=== PATIENT | female | born 1955 | race Caucasian/White ===

== ENCOUNTER 2020-11-03 06:54 | Observation (INO) ==
--- NOTE | 2020-10-20 10:54 | PAT Medication Instructions ---
Medication Instructions Date of Service October 20, 2020 Home Medications albuterol sulfate [ProAir RespiClick] 1 inh INHALATION QID PRN alprazolam [Xanax] 0.5 mg PO TID ascorbic acid (vitamin C) [Vitamin C] 500 mg PO QAM atenolol 25 mg PO QAM atorvastatin 20 mg PO QAM budesonide 0.25 mg INHALATION BID buspirone [BuSpar] 15 mg PO TID calcium carbonate-vitamin D3 [Calcium + D] 1 tab PO BID cetirizine [Zyrtec] 10 mg PO QAM citalopram 40 mg PO QAM cyanocobalamin (vitamin B-12) 1,000 mcg PO QAM famotidine [Pepcid] 20 mg PO BID fenofibrate micronized 134 mg PO QAM fluticasone propionate [Flonase] 1 spray INTRANASAL QAM mirabegron [Myrbetriq] 25 mg PO QAM montelukast [Singulair] 10 mg PO QAM multivitamin 1 tab PO QAM pantoprazole 40 mg PO BID polyethylene glycol 3350 [Miralax] 17 g PO BID tetrahydrozoline [Visine] 1 drp OPB TID STOP taking 48 hours before surgery fenofibrate micronized 134 mg PO QAM DO NOT take the morning of surgery ascorbic acid (vitamin C) [Vitamin C] 500 mg PO QAM calcium carbonate-vitamin D3 [Calcium + D] 1 tab PO BID cetirizine [Zyrtec] 10 mg PO QAM cyanocobalamin (vitamin B-12) 1,000 mcg PO QAM mirabegron [Myrbetriq] 25 mg PO QAM montelukast [Singulair] 10 mg PO QAM multivitamin 1 tab PO QAM polyethylene glycol 3350 [Miralax] 17 g PO BID Take morning of surgery With a small sip of water, OTHERWISE NOTHING TO EAT OR DRINK AFTER MIDNIGHT: albuterol sulfate [ProAir RespiClick] 1 inh INHALATION QID PRN (use if needed; please bring rescue inhaler with you to hospital day of surgery if possible) alprazolam [Xanax] 0.5 mg PO TID atenolol 25 mg PO QAM atorvastatin 20 mg PO QAM budesonide 0.25 mg INHALATION BID buspirone [BuSpar] 15 mg PO TID citalopram 40 mg PO QAM famotidine [Pepcid] 20 mg PO BID fluticasone propionate [Flonase] 1 spray INTRANASAL QAM pantoprazole 40 mg PO BID tetrahydrozoline [Visine] 1 drp OPB TID Take evening before surgery albuterol sulfate [ProAir RespiClick] 1 inh INHALATION QID PRN (if needed) alprazolam [Xanax] 0.5 mg PO TID budesonide 0.25 mg INHALATION BID buspirone [BuSpar] 15 mg PO TID calcium carbonate-vitamin D3 [Calcium + D] 1 tab PO BID famotidine [Pepcid] 20 mg PO BID pantoprazole 40 mg PO BID polyethylene glycol 3350 [Miralax] 17 g PO BID tetrahydrozoline [Visine] 1 drp OPB TID Other Notes If you have any questions please call us at [phone] or [phone] or [phone] or [phone]
--- NOTE | 2020-10-21 11:42 | Anesthesiology Consultation ---
Date of Service October 21, 2020 Assessment & Plan (1) Encounter for pre-operative examination: COVID screening: Per assessment on 10/21: Travel screen negative, no known COVID- 19 positive contacts or current COVID-19 related symptoms. Patient will receive second vaccine 10/22. Surgeon arranging preop COVID testing. Awaiting results. Chart Review Chart Review: Acceptable Risk for Surgery and Patient seen in Pre Admission Testing Teaching & Discussion Pre-Anesthesia Teaching/Discussion Notes: Instructed NPO after midnight before surgery,except medications with 15 cc of water. Medication instructions provided according to the PAT guidelines. History Surgery Operation Date: 11/03/20 11:05 Proposed Procedures p L4-L5 Decompression Fusion, Spinal Cord Monitoring - Jose Alejandro Victor, Height/Weight Height: 5 ft 2 in Weight: 79.2 kg Allergies Allergy/AdvReac Type Severity Reaction Status Date / Time topiramate Allergy Intermediate Tremors Verified 10/21/20 11:37 ampicillin Allergy Mild Hives Verified 10/21/20 11:37 Bactrim Allergy Mild RASH Verified 10/25/12 11:15 latex Allergy Mild Rash Verified 10/14/20 11:32 loratadine Allergy Mild Rash Verified 10/21/20 11:37 mirtazapine Allergy Mild Rash Verified 10/21/20 11:37 Sulfa (Sulfonamide Allergy Mild Rash Verified 10/21/20 11:37 Antibiotics) sulfamethoxazole [Bactrim] Allergy Mild Rash Verified 10/21/20 11:37 trimethoprim [Bactrim] Allergy Mild Rash Verified 10/21/20 11:37 meperidine AdvReac Intermediate Tremors Verified 10/21/20 11:37 prednisone AdvReac Intermediate Severe Verified 10/21/20 11:37 headaches fluticasone AdvReac Mild Nose bleeds Verified 10/21/20 11:37 Medications Home Medications Medication Instructions Recorded Confirmed Last Taken albuterol sulfate [ProAir 1 inh INHALATION QID PRN 10/14/20 10/14/20 Unknown RespiClick] alprazolam [Xanax] 0.5 mg PO TID 10/14/20 10/14/20 Unknown ascorbic acid (vitamin C) [Vitamin 500 mg PO QAM 10/14/20 10/14/20 Unknown C] atenolol 25 mg PO QAM 10/14/20 10/14/20 Unknown atorvastatin 20 mg PO QAM 10/14/20 10/14/20 Unknown budesonide 0.25 mg INHALATION BID 10/14/20 10/14/20 Unknown buspirone [BuSpar] 15 mg PO TID 10/14/20 10/14/20 Unknown calcium carbonate-vitamin D3 1 tab PO BID 10/14/20 10/14/20 Unknown [Calcium + D] cetirizine [Zyrtec] 10 mg PO QAM 10/14/20 10/14/20 Unknown citalopram 40 mg PO QAM 10/14/20 10/14/20 Unknown cyanocobalamin (vitamin B-12) 1,000 mcg PO QAM 10/14/20 10/14/20 Unknown famotidine [Pepcid] 20 mg PO BID 10/14/20 10/14/20 Unknown fenofibrate micronized 134 mg PO QAM 10/14/20 10/14/20 Unknown fluticasone propionate [Flonase] 1 spray INTRANASAL QAM 10/14/20 10/14/20 Unknown mirabegron [Myrbetriq] 25 mg PO QAM 10/14/20 10/14/20 Unknown montelukast [Singulair] 10 mg PO QAM 10/14/20 10/14/20 Unknown multivitamin 1 tab PO QAM 10/14/20 10/14/20 Unknown pantoprazole 40 mg PO BID 10/14/20 10/14/20 Unknown polyethylene glycol 3350 [Miralax] 17 g PO BID 10/14/20 10/14/20 Unknown tetrahydrozoline [Visine] 1 drp OPB TID 10/14/20 10/14/20 Unknown Past Medical History Medical History (Updated 10/21/20 @ 11:40 by Liseth Morocho) Anxiety and depression Asthma Stable Cataract Right eye Degenerative disc disease Dry eye syndrome Fatty liver Gastroparesis Hyperlipidemia Hypertension Spinal stenosis + LBP Stress incontinence in female Thyroid nodule Under surveillance Exercise / Class Metabolic Activity III < 4 Walking/Shop/Light housework Past Family History Family History Mother Family history of diabetes mellitus Father Family history of diabetes mellitus Daughter Family history of diabetes mellitus Son Family history of diabetes mellitus Other No family history of adverse response to anesthesia Past Surgical History Surgical History (Updated 10/21/20 @ 11:39 by Liseth Morocho) H/O shoulder surgery Right x2 History of appendectomy History of bladder surgery Bladder tack History of carpal tunnel release Right x2 History of colonoscopy History of esophagogastroduodenoscopy (EGD) History of hysterectomy [place] teeth removed Past Anesthesia History No Hx of Anesthesia Complications and No Family Hx of Anesthesia Complications History of PONV No Hx of PONV and No Hx of Motion Sickness Social History Smoking Status: Never smoker Do You Dip or Chew Tobacco: No Hx Alcohol Use: No substance use type: does not use Review of Systems No snoring. Patient denies chest pain, shortness of breath, fever, chills, cough, wheezing, palpitations. Physical Exam Vital Signs VITALS BP 115/77 P 72 TEMP 97.8 SP02 95%RA RESP 16 PHYSICAL Full neck and c-spine range of motion. Full TMJ range of motion. TMD 3 finger breaths Mallampati Score 1 Dentition: intact, + crown (side) Lungs: clear throughout to auscultation Cardiac: regular rate and rhythm, no murmurs noted Spine: normal Carotid arteries: negative bruit Extremities: no edema Testing Laboratory Results 10/21/20 11:58 10/21/20 11:58 PT 10.4 Seconds (9.0-12.0) 10/21/20 11:58 INR 1.0 (0.9-1.1) 10/21/20 11:58 APTT 22.2 Seconds (21.0-31.0) 10/21/20 11:58 Urine Color Yellow 10/21/20 11:58 Urine Appearance Clear (Clear) 10/21/20 11:58 Urine pH 5.5 (4.5-7.5) 10/21/20 11:58 Ur Specific [place] 1.025 (1.000-1.030) 10/21/20 11:58 Urine Protein Negative (Negative) 10/21/20 11:58 Urine Glucose (UA) Negative (Negative) 10/21/20 11:58 Urine Ketones Negative (Negative) 10/21/20 11:58 Urine Nitrite Negative (Negative) 10/21/20 11:58 Ur Leukocyte Esterase Negative (Negative) 10/21/20 11:58 Blood Type O Positive 10/21/20 11:58 Antibody Screen NEGATIVE 10/21/20 11:58 Electrocardiogram Date: 08/13/20 NSR at 76bpm. Possible inferior infarct. No significant change compared to 01/05/2019 per hvac maintenance technician review. Chest X-Ray Date: 10/21/20 FINDINGS: The heart is at the upper limits of normal in size. There is no failure. There is no focal pulmonary consolidation. There are no pleural effusions. There is subsegmental right middle lobe atelectasis. IMPRESSION: Subsegmental right middle lobe atelectatic change. Echocardiogram Date: 10/11/17 EF 64%. No regional wall motion abnormality. RV and PASP cannot be estimated on study. No significant valvular disease. Stress Test Date: 12/03/15 Type: DSE Dobutamine stress echo is normal without resting LV wall motion abnormalities or inducible ischemia 96% MPHR. LVEF 55 to 59%. Stress EKG response was normal. No significant arrhythmias noted.
--- NOTE | 2020-10-21 12:30 | XRay Report ---
XR chest Pre-admission PA/Lat CLINICAL HISTORY: Rapid chest COMPARISON STUDY: No previous studies for comparison. FINDINGS: The heart is at the upper limits of normal in size. There is no failure. There is no focal pulmonary consolidation. There are no pleural effusions. There is subsegmental right middle lobe atel ectasis.[ IMPRESSION: Subsegmental right middle lobe atelectatic change. ACT 112: Negative or not required by law. Electronically signed by: Kang Raymond M.D. 10/21/2020 12:29 PM
[2020-10-21 12:39] LABS: Basophils # (auto) 0.02 K/uL (0-0.2); Basophils % (auto) 0.3 %; Eosinophils # (auto) 0.26 K/uL (0-0.5); Eosinophils % (auto) 4.2 %; Hematocrit (blood only) 35.3 % (37-47); Immature Granulocytes # (auto) 0.01 K/uL (0.00-0.02); Immature Granulocytes % (auto) 0.2 %; Lymphocytes # (auto) 1.97 K/uL (1.2-3.4); Lymphocytes % (auto) 31.9 %; Mean Corpuscular Volume 91.2 fL (80-100); Mean Platelet Volume 10.6 fL (7.4-10.4); Monocytes # (auto) 0.61 K/uL (0.11-0.59); Monocytes % (auto) 9.9 %; Neutrophils # (auto) 3.31 K/uL (1.4-6.5); Neutrophils % (auto) 53.5 %; Platelet Count 201 K/uL (130-400); RDW Coefficient of Variation 14.3 % (11.5-14.5); RDW Standard Deviation 47.7 fL (36.4-46.3); Red Blood Count 3.87 M/uL (4.2-5.4); White Blood Count 6.18 K/uL (4.8-10.8)
[2020-10-21 12:51] LABS: BUN Creatinine Ratio 15.9 (10-20); Calcium 9.5 mg/dl (8.5-10.1); Creatinine Clr Calc Pharmacy 55.4 ml/min; Est GFR (African American) 70.9; Est GFR (Non-African American) 61.2; Potassium 4.1 mmol/L (3.5-5.1)
[2020-10-21 12:52] LABS: Partial Thromboplastin Ratio 0.8; Partial Thromboplastin Time 22.2 Seconds (21.0-31.0); Prothrombin Time 10.4 Seconds (9.0-12.0)
[2020-10-21 13:56] LABS: Appearance Urine Clear (Clear); Bilirubin Urine Negative (Negative); Blood Urine Negative (Negative); Color Urine Yellow; Glucose Urine UA Negative (Negative); Ketones Urine Negative (Negative); Leukocyte Esterase Urine Negative (Negative); Nitrite Urine Negative (Negative); Protein Urine Negative (Negative); Specific Gravity Urine 1.025 (1.000-1.030); Urobilinogen Urine Negative (Negative); pH Urine 5.5 (4.5-7.5)
[~2020-11-03 06:54] MED LIST: ACETAMINOPHEN 500 MG TAB PO SCH; CLINDAMYCIN 600 MG/54 ML BAG IV SCH; CeleBREX 200 MG CAP PO SCH; GABAPENTIN 300 MG CAP PO SCH; LR 15ML/HR IV SCH
[2020-11-03] MEDS ORDERED: fentaNYL citrate 100 MCG/2 ML VIAL ONE ×2 (08:39)
[2020-11-03] MEDS ORDERED: MIDAZOLAM HCL 1 MG/ML 2ML VIAL ONE (08:39)
[2020-11-03] MEDS ORDERED: ONDANSETRON INJ 2 MG/ML 2 ML VIAL ONE (08:40)
[2020-11-03] MEDS ORDERED: PROPOFOL IV EMULSION 10 MG/ML 20 ML VIAL IV ONE ×2 (08:40)
[2020-11-03] MEDS ORDERED: ROCURONIUM BROMIDE 10 MG/ML 5 ML VIAL IV ONE (08:40)
[2020-11-03] MEDS ORDERED: DEXAMETHASONE SOD INJ 4 MG/ML VIAL ONE (08:40)
[2020-11-03] MEDS ORDERED: LIDOCAINE HCL 2% 2 ML VIAL/AMP(20MG/ML) INFIL ONE ×2 (08:40)
[2020-11-03] MEDS ORDERED: METOCLOPRAMIDE HCL INJ 5 MG/ML 2 ML VIAL ONE (08:41)
[2020-11-03] MEDS ORDERED: ePHEDrine sulfate 50 MG/ML AMP IV PRN (08:42)
[2020-11-03] MEDS ORDERED: PROMETHAZINE HCL 12.5 MG in SODIUM CHLORIDE 0.9% 50 ML IV PRN ×2 (08:42→12:22)
[2020-11-03] MEDS ORDERED: LABETALOL HCL IV 5 MG/ML 20ML IV PRN (08:42)
[2020-11-03] MEDS ORDERED: ATROPINE SULFATE 0.1 MG/ML 10ML SYR IV PRN (08:42)
[2020-11-03] MEDS ORDERED: NALOXONE HCL 0.4 MG/1 ML VIAL/CARP IV PRN ×2 (08:42→12:22)
[2020-11-03] MEDS ORDERED: FLUMAZENIL 0.1 MG/1 ML 10 ML VIAL IV PRN (08:42)
[2020-11-03] MEDS ORDERED: ONDANSETRON INJ 2 MG/ML 2 ML VIAL IV PRN ×2 (08:42→12:22)
[2020-11-03] MEDS ORDERED: HYDROmorphone INJ 1 MG/ML SYRINGE IV PRN ×2 (08:42→12:22)
[2020-11-03] MEDS ORDERED: fentaNYL citrate 100 MCG/2 ML VIAL IV PRN (08:42)
--- NOTE | 2020-11-03 09:00 | History & Physical Bridge Note ---
Date of Service November 03, 2020 History & Physical Bridge Note I have examined the patient, reviewed the History & Physical and in the interval since the performance of the History & Physical I have noted the following changes of clinical significance: no changes noted
--- NOTE | 2020-11-03 09:01 | History & Physical Report ---
Date of Service November 03, 2020 Assessment & Plan (1) Neurogenic claudication due to lumbar spinal stenosis: Admission and Anticipated Discharge Date Admission Date: L4-L5 decompression fusion History of Present Illness Chief Complaint: Back and bilateral leg pain Primary Care Provider: Roman Jernigan MD This is a 65-year-old female presents with chronic persistent back and bilateral leg pain. After failing course of nonoperative care she is here for surgical invention. Allergies Allergy/AdvReac Type Severity Reaction Status Date / Time topiramate Allergy Intermediate Tremors Verified 11/03/20 07:46 ampicillin Allergy Mild Hives Verified 11/03/20 07:46 Bactrim Allergy Mild RASH Verified 10/25/12 11:15 latex Allergy Mild Rash Verified 11/03/20 07:46 loratadine Allergy Mild Rash Verified 11/03/20 07:46 mirtazapine Allergy Mild Rash Verified 11/03/20 07:46 Sulfa (Sulfonamide Allergy Mild Rash Verified 11/03/20 07:46 Antibiotics) sulfamethoxazole [Bactrim] Allergy Mild Rash Verified 11/03/20 07:46 trimethoprim [Bactrim] Allergy Mild Rash Verified 11/03/20 07:46 meperidine AdvReac Intermediate Tremors Verified 11/03/20 07:46 prednisone AdvReac Intermediate Severe Verified 11/03/20 07:46 headaches fluticasone AdvReac Mild Nose bleeds Verified 11/03/20 07:46 Home Medications Medication Instructions Recorded Confirmed Type albuterol sulfate [ProAir 1 inh INHALATION QID PRN 10/14/20 11/03/20 History RespiClick] alprazolam [Xanax] 0.5 mg PO TID 10/14/20 11/03/20 History ascorbic acid (vitamin C) [Vitamin 500 mg PO QAM 10/14/20 11/03/20 History C] atenolol 25 mg PO QAM 10/14/20 11/03/20 History atorvastatin 20 mg PO QAM 10/14/20 11/03/20 History budesonide 0.25 mg INHALATION BID 10/14/20 11/03/20 History buspirone [BuSpar] 15 mg PO TID 10/14/20 11/03/20 History calcium carbonate-vitamin D3 1 tab PO BID 10/14/20 11/03/20 History [Calcium + D] cetirizine [Zyrtec] 10 mg PO QAM 10/14/20 11/03/20 History citalopram 40 mg PO QAM 10/14/20 11/03/20 History cyanocobalamin (vitamin B-12) 1,000 mcg PO QAM 10/14/20 11/03/20 History famotidine [Pepcid] 20 mg PO BID 10/14/20 11/03/20 History fenofibrate micronized 134 mg PO QAM 10/14/20 11/03/20 History fluticasone propionate [Flonase] 1 spray INTRANASAL QAM 10/14/20 11/03/20 History mirabegron [Myrbetriq] 25 mg PO QAM 10/14/20 11/03/20 History montelukast [Singulair] 10 mg PO QAM 10/14/20 11/03/20 History multivitamin 1 tab PO QAM 10/14/20 11/03/20 History pantoprazole 40 mg PO BID 10/14/20 11/03/20 History polyethylene glycol 3350 [Miralax] 17 g PO BID 10/14/20 11/03/20 History tetrahydrozoline [Visine] 1 drp OPB TID 10/14/20 11/03/20 History Past Med/Surg History Medical History (Updated 11/03/20 @ 09:01 by Jose Alejandro Victor DO) Anxiety and depression Asthma Stable Cataract Right eye Degenerative disc disease Dry eye syndrome Fatty liver Gastroparesis Hyperlipidemia Hypertension Spinal stenosis + LBP Stress incontinence in female Thyroid nodule Under surveillance Surgical History H/O shoulder surgery Right x2 History of appendectomy History of bladder surgery Bladder tack History of carpal tunnel release Right x2 History of colonoscopy History of esophagogastroduodenoscopy (EGD) History of hysterectomy [place] teeth removed Family History Mother Family history of diabetes mellitus Father Family history of diabetes mellitus Daughter Family history of diabetes mellitus Son Family history of diabetes mellitus Other No family history of adverse response to anesthesia Social History Smoking Status: Never smoker Second Hand Exposure: Yes (IN THE PAST); Do You Dip or Chew Tobacco: No; Hx Alcohol Use: No Preferred Language: Greenlandic Facilities Mechanical Design Engineer Required: No Beliefs That Will Affect Care: None Current Living Situation: Spouse Feels Safe at Home: Yes Safety Concerns: Feels Safe At This Time Assistive Devices: Glasses and Nebulizer Physical Exam Physical Exam: Patient is alert and oriented Heart regular in rhythm Lungs clear to auscultation Results & Data ([facility]) Vital Signs (Past 12 Hours) Vital Signs Temp Pulse Resp BP Pulse Ox 11/03/20 07:57 36.8 C 87 20 132/80 92
[2020-11-03] MEDS ORDERED: BACITRACIN INJ 50,000 UNIT VIAL ONE (09:15)
[2020-11-03] MEDS ORDERED: BUPIVACAINE/EPINEPHRINE 0.5% MPF 1:200,000 30 ML VIAL ONE (09:15)
[2020-11-03] MEDS ORDERED: HYDROmorphone INJ 2 MG/ML SYR/VIAL ONE (09:59)
[2020-11-03] MEDS ORDERED: ePHEDrine sulfate 50 MG/ML SYR ONE (10:07)
[2020-11-03] MEDS ORDERED: GLYCOPYRROLATE 0.2 MG/ML VIAL ONE (10:55)
[2020-11-03] MEDS ORDERED: NEOSTIGMINE METHYLSULFATE 1 MG/ML 10ML VIAL ONE (10:55)
[2020-11-03] MEDS ORDERED: FLOSEAL HEMOSTATIC MATRIX 10ML TOP ONE (10:58)
--- NOTE | 2020-11-03 11:00 | Operative Report ---
Post Operative Report Pre & Post Diagnosis Operation Date: 11/03/20 09:05 Pre-Op Diagnosis: Lumbar spinal stenosis with spondylolisthesis L4-L5 Post-Op Diagnosis: Same I identified the patient and participated in the time-out.: Yes Procedure Operation Date: 11/03/20 09:05 Actual Procedures #1 lumbar decompression with bilateral medial facetectomies and foraminotomies L3-4 and L4-5. #2 posterior spinal fusion L4-5. #3 placement posterior instrumentation L4-5. #4 interbody fusion L4-L5. #5 placement of peek cage 13 x 22 mm at L4-5 per #6 placement locally harvested morselized autograft in the posterior lateral gutters. #7 placement of I factor in the interbody space and posterior lateral gutters. Surgeon Jose Alejandro Victor, DO [employer] Supervisor Vandana Olson Estimated Blood Loss 100 Findings See Below The patient is 5 foot 2 inches tall weighing over 78 kg with a BMI in excess of 31. The patient's body habitus did contribute to significant technical difficulty requiring deeper retractors longus instruments in order to perform her procedure. This had at least 25% increase to the operative time. Specimens None Indications This is a 65-year-old female presents above-mentioned diagnosis with recent course of nonoperative care she is here for the above-mentioned procedure. Description of Procedure Patient was met with identified informed consent obtained. Patient was then taken to the operative suite underwent a patient placed in prone position i njectable top less than frame. All bony prominences well-padded eyes inspected to ensure no external pressure placed upon the. This point the lumbar spine was prepped and draped in a sterile fashion. Sharp dissection with the assistance of Bovie cautery was performed down to and exposing the lamina and transverse processes of L4 and L5. From caudal to cephalad fashion complete laminectomy of L4 partial laminectomy of L3 was performed including bilateral medial facetectomies and foraminotomies addressing severe spinal stenosis. Pedicle screws were then placed in L4 and L5 bilaterally with assistance of fluoroscopy and the process lynda placed. By way the transforaminal approach on the right complete discectomy was performed endplates curetted to subcortical bleeding bone and a 13 x 22 mm peek cage filled with I factor tapped in position. The rods were then locked in final position bilaterally. The transverse processes of L4 and L5 burred to subcortical bleeding bone. Infuse collagen sponge mass graft local autograft was then placed in the posterior gutters. 15 round ERICH drain inserted. The incision was then closed with 1 Vicryl to fascia 2-0 Vicryl subcutaneously and 4 Monocryl for final skin closure. Steri-Strip sterile dressings placed. Patient will continue to PACU stable condition. Please note spinal cord monitoring was utilized at the procedure no changes noted. Lastly Vandana Olson was present at the entire surgery involved the patient positioning complex portions of the surgery and final skin closure. I attest to the content of the Intraoperative Record and any orders documented therein. Any exceptions are noted below.
[2020-11-03] MEDS ORDERED: KETOROLAC 30 MG/ML VIAL ONE (11:01)
--- NOTE | 2020-11-03 11:29 | Fluoroscopy Report ---
FL lumbar spine 2-3V CLINICAL HISTORY: L4-L5 DECOMPRESSION AND FUSION COMPARISON STUDY: None FLUOROSCOPY TIME: 17 seconds. NUMBER OF FLUOROSCOPIC IMAGES: 2 FINDINGS: 2 intraoperative fluoroscopic spot images demonstrate postsurgical changes of an L4-5 disce ctomy and interbody fusion. Postlaminectomy changes are evident. There is posterior pedicle screw fix ation. IMPRESSION: Postsurgical changes of an L4-5 spinal decompression, interbody fusion, and posterior pe dicle screw fixation ACT 112: Negative or not required by law. Electronically signed by: Kang Raymond M.D. 11/03/2020 11:28 AM
--- NOTE | 2020-11-03 11:56 | Anesthesiology Progress Note ---
Date of Service November 03, 2020 Anesthesia Post Procedure Vital Signs Vital Signs: Temp Pulse Pulse Resp BP BP Pulse Ox 11/03/20 11:50 36.5 C 81 16 109/82 94 11/03/20 11:40 82 14 140/82 94 11/03/20 11:30 84 14 123/85 93 11/03/20 11:20 83 14 113/79 95 11/03/20 11:13 36.4 C L 81 14 115/74 93 11/03/20 07:57 36.8 C 87 20 132/80 92 Pain Intensity Lower Back: Pain Intensity: 4 Transfer of Care Handoff Completed per policy Notes Mental Status: alert / awake / arousable Patient Amnestic to Procedure: Yes Nausea / Vomiting: adequately controlled Pain: adequately controlled Airway Patency, RR, SpO2: stable & adequate BP & HR: stable & adequate Hydration State: stable & adequate Anesthetic Complications: no major complications apparent
[2020-11-03] MEDS ORDERED: MAGNESIUM HYDROXIDE SUSP 30 ML UDC PO PRN (12:22)
[2020-11-03] MEDS ORDERED: METOCLOPRAMIDE HCL INJ 5 MG/ML 2 ML VIAL IV PRN (12:22)
[2020-11-03] MEDS ORDERED: DO NOT ADMINISTER FLU VACCINE PRN (12:22)
[2020-11-03] MEDS ORDERED: LORazepam 0.5 MG TAB PO PRN (12:22)
[2020-11-03] MEDS ORDERED: ALUMINUM/MAGNESIUM SUSP 30 ML UDC PO PRN (12:22)
[2020-11-03] MEDS ORDERED: ACETAMINOPHEN 500 MG TAB PO PRN (12:22)
[2020-11-03] MEDS ORDERED: ACETAMINOPHEN 1,000 MG/100 ML VIAL IV PRN (12:22)
[2020-11-03] MEDS ORDERED: diphenhydrAMINE Capsule 25 MG CAP PO PRN (12:22)
[2020-11-03] MEDS ORDERED: LORazepam 0.5 MG/1 ML VIAL IV PRN (12:22)
[2020-11-03] MEDS ORDERED: HYDROmorphone INJ 0.5 MG/0.5 ML SYR IV PRN (12:22)
[2020-11-03] MEDS ORDERED: bisacodyL 10 MG SUPP PR PRN (12:22)
[2020-11-03] MEDS ORDERED: ONDANSETRON 4 MG OD TAB PO PRN (12:22)
[2020-11-03] MEDS ORDERED: SOD PHOSPHATE/SOD BIPHOSPHATE ENEMA 132 ML BTL PR PRN (12:22)
[2020-11-03] MEDS ORDERED: DO NOT ADMINISTER PNEUMOCOCCAL VACCINE PRN (12:22)
[2020-11-03] MEDS ORDERED: hydrOXYzine HCl 25 MG TAB PO PRN (12:22)
[2020-11-03] MEDS ORDERED: traMADol HCL 50 MG TABLET PO PRN (12:22)
[2020-11-03] MEDS ORDERED: FAMOTIDINE 20 MG TAB PO PRN (12:22)
[2020-11-03] MEDS ORDERED: ALBUTEROL HFA 8 GM INHALER INH PRN (13:08)
[2020-11-03] MEDS: busPIRone 15 MG TAB PO SCH ×2 (13:55→20:26)
[2020-11-03] MEDS: SODIUM CHLORIDE 0.9% 1000ML 1,000 ML IV SCH ×2 (13:55→23:02)
[2020-11-03] MEDS: ALPRAZolam 0.5 MG TABLET PO SCH ×2 (13:56→20:26)
[2020-11-03] MEDS: ARTIFICIAL TEARS OP SCH ×2 (14:00→20:27)
--- NOTE | 2020-11-03 14:18 | Consultation ---
Date of Consultation November 03, 2020 Assessment & Plan (1) Neurogenic claudication due to lumbar spinal stenosis: S/P L4-L5 lumbar decompression fusion by Dr. Victor, POD #0 Tolerated procedure well EBL 100 mL; ERICH drain 30 mL Pain/wound management per orthopedic Activity, therapy and diet as directed by Ortho Encourage incentive spirometry and wean oxygen as able Monitor hemoglobin, preop 12.0 (2) Asthma: No acute exacerbation, lungs clear Continue budesonide, as needed albuterol, Singulair and cetirizine Encourage incentive spirometry (3) Hypertension: Blood pressure stable Continue atenolol (4) Hyperlipidemia: Continue statin (5) Anxiety and depression: mood stable Continue BuSpar, citalopram, as needed alprazolam Dispo: per primary FULL CODE PCP: Rere Monroy was seen and examined in collaboration with Dr. Sweet, please see addendum Thank you for this consultation. We will follow the patient with you during their hospital stay. [facility] via tiger text role. Supervising Physician Co-Signing Physician Notes I saw this patient with the physician assistant teacher, I participated in the history, physical, review of systems, and physical exam. I reviewed the medications with the patient and the physician assistant teacher and helped reconcile the medications. I helped take a detailed family and social history as well. I formulated the assessment and plan personally with the physician assistant teacher and went over it with the patient. Physical Exam Gen-AAO x 3, NAD, Afebrile, Drain in Place Head-NCAT, EOMI, PERRLA, Anicteric Sclera, No Posterior Pharyngeal Erythema Neck-Supple, No JVD, No Thyromegaly, No Masses, No LAD, No Bruits Lungs-Clear to Auscultation Bilaterally, No Rales, No Rhonchi, No Wheezing, No Crepitus Chest-No S4, +S1, +S2, No S3, No Murmurs, No Rubs, No Gallops, No Ectopy Abdomen-Soft, Bowel Sounds Present, Non Tender, Non Distended, No Hepatomegaly, No Splenomegaly, No Palpable Masses, No Rebound, No Rigidity, No Guarding Musculoskeletal-Full Range of Motion Bilaterally, No CVAT, +Drain, Sore Extremities-No Cyanosis, No Clubbing, No Edema Nuero-Cranial Nerves II-XII grossly intact, Motor WNL, DTRs WNL, Strength WNL, Non Focal Psych-Normal Mood History of Present Illness Requesting Physician: Dr. Victor Reason for Consultation: Postop medical management Attending Physician: Jose Alejandro Victor DO History of Present Illness This is a 65-year-old female who has significant past medical history of HTN, HLD, diastolic dysfunction, asthma, depression with anxiety, gastroparesis, fatty liver who presents for elective lumbar procedure by Dr. Victor. She underwent L4-L5 lumbar decompression fusion and tolerated procedure well. She has no postoperative concerns or complaints. She tolerated clear liquid diet for lunch. She denies fever, chills, sweats, lightheadedness, dizziness, chest pain, shortness breath, cough, palpitations, nausea, vomiting, abdominal pain. She did not have a urinary catheter placed postoperatively. Patient does have past medical history of asthma. She is on budesonide twice daily. She denies need of rescue inhaler at home. She is also on Singulair and antihistamine. She also has history of hypertension controlled with atenolol. Her last dose was this morning. Nurse at bedside offers no concerns. Allergies Allergy/AdvReac Type Severity Reaction Status Date / Time topiramate Allergy Intermediate Tremors Verified 11/03/20 07:46 ampicillin Allergy Mild Hives Verified 11/03/20 07:46 Bactrim Allergy Mild RASH Verified 10/25/12 11:15 latex Allergy Mild Rash Verified 11/03/20 07:46 loratadine Allergy Mild Rash Verified 11/03/20 07:46 mirtazapine Allergy Mild Rash Verified 11/03/20 07:46 Sulfa (Sulfonamide Allergy Mild Rash Verified 11/03/20 07:46 Antibiotics) sulfamethoxazole [Bactrim] Allergy Mild Rash Verified 11/03/20 07:46 trimethoprim [Bactrim] Allergy Mild Rash Verified 11/03/20 07:46 meperidine AdvReac Intermediate Tremors Verified 11/03/20 07:46 prednisone AdvReac Intermediate Severe Verified 11/03/20 07:46 headaches fluticasone AdvReac Mild Nose bleeds Verified 11/03/20 07:46 Home Medications Medication Instructions Recorded Confirmed Type albuterol sulfate [ProAir 1 inh INHALATION QID PRN 10/14/20 11/03/20 History RespiClick] alprazolam [Xanax] 0.5 mg PO TID 10/14/20 11/03/20 History ascorbic acid (vitamin C) [Vitamin 500 mg PO QAM 10/14/20 11/03/20 History C] atenolol 25 mg PO QAM 10/14/20 11/03/20 History atorvastatin 20 mg PO QAM 10/14/20 11/03/20 History budesonide 0.25 mg INHALATION BID 10/14/20 11/03/20 History buspirone [BuSpar] 15 mg PO TID 10/14/20 11/03/20 History calcium carbonate-vitamin D3 1 tab PO BID 10/14/20 11/03/20 History [Calcium + D] cetirizine [Zyrtec] 10 mg PO QAM 10/14/20 11/03/20 History citalopram 40 mg PO QAM 10/14/20 11/03/20 History cyanocobalamin (vitamin B-12) 1,000 mcg PO QAM 10/14/20 11/03/20 History famotidine [Pepcid] 20 mg PO BID 10/14/20 11/03/20 History fenofibrate micronized 134 mg PO QAM 10/14/20 11/03/20 History fluticasone propionate [Flonase] 1 spray INTRANASAL QAM 10/14/20 11/03/20 History mirabegron [Myrbetriq] 25 mg PO QAM 10/14/20 11/03/20 History montelukast [Singulair] 10 mg PO QAM 10/14/20 11/03/20 History multivitamin 1 tab PO QAM 10/14/20 11/03/20 History pantoprazole 40 mg PO BID 10/14/20 11/03/20 History polyethylene glycol 3350 [Miralax] 17 g PO BID 10/14/20 11/03/20 History tetrahydrozoline [Visine] 1 drp OPB TID 10/14/20 11/03/20 History Patient History Medical History (Updated 11/03/20 @ 14:13 by Meri Chance PA-C) Anxiety and depression Asthma Stable Cataract Right eye Degenerative disc disease Dry eye syndrome Fatty liver Gastroparesis Hyperlipidemia Hypertension Spinal stenosis + LBP Stress incontinence in female Thyroid nodule Under surveillance Surgical History H/O shoulder surgery Right x2 History of appendectomy History of bladder surgery Bladder tack History of carpal tunnel release Right x2 History of colonoscopy History of esophagogastroduodenoscopy (EGD) History of hysterectomy [place] teeth removed Family History (Updated 11/03/20 @ 14:11 by Meri Chance PA-C) Mother Family history of diabetes mellitus Cancer Father Family history of diabetes mellitus Cancer Daughter Family history of diabetes mellitus Son Family history of diabetes mellitus Other No family history of adverse response to anesthesia Social History (Updated 11/03/20 @ 14:11 by Meri Chance PA-C) Smoking Status: Never smoker Second Hand Exposure: Yes (IN THE PAST); Do You Dip or Chew Tobacco: No; Hx Alcohol Use: No Hx Substance Use: No Preferred Language: Occitan Senior It Auditor Required: No Beliefs That Will Affect Care: None marital status: Current Living Situation: Spouse current occupational status: retired and disabled Feels Safe at Home: Yes Safety Concerns: Feels Safe At This Time Assistive Devices: Glasses and Nebulizer Review of Systems Review of Systems: All systems reviewed & are unremarkable except as noted in HPI & below Physical Exam Physical Exam: Constitutional: WD/WN, female, drowsy, vitals as above, NAD, sitting up in bed, pleasant, conversing easily Head: Normocephalic, Atraumatic Eyes: PERRL, conjunctivae normal, anicteric sclerae ENMT: external ear and nose normal, oropharynx normal Neck: trachea midline, no thyromegaly normal visual inspection Respiratory: normal respiratory effort, lungs clear to auscultation, no wheeze, rales, rhonchi. Normal insp/exp effort, no accessory muscle use Cardiovascular: RRR, no murmur, no edema Vessels: no JVD or carotid bruit Chest: normal inspection of chest Abdomen: normal bowel sounds, soft, nontender, no hepatosplenomegaly Musculoskeletal: no cyanosis or clubbing, extremities motor strength 5/5, lumbar dressing CDI, ERICH drain with serosanguineous drainage Skin: no rashes, warm and dry normal turgor Neurologic: PERRL, EOMI, accommodation nl, no face palsy, no dysarthria CN's II-XI intact bilaterally and moves all extremities Psychiatric: A+Ox3, euthymic affect Lymphatic: no cervical or axillary lymphadenopathy : deferred Results & Data ([facility]) Vital Signs (Past 12 Hours) Vital Signs Temp Pulse Pulse Pulse Resp BP BP 11/03/20 13:35 37.3 C 91 H 18 120/77 11/03/20 12:35 36.5 C 86 18 120/70 11/03/20 12:05 36.8 C 88 16 133/84 11/03/20 11:50 36.5 C 81 16 109/82 11/03/20 11:40 82 14 140/82 11/03/20 11:30 84 14 123/85 11/03/20 11:20 83 14 113/79 11/03/20 11:13 36.4 C L 81 14 115/74 11/03/20 07:57 36.8 C 87 20 132/80 Pulse Ox 11/03/20 13:35 92 11/03/20 12:35 93 11/03/20 12:05 93 11/03/20 11:50 94 11/03/20 11:40 94 11/03/20 11:30 93 11/03/20 11:20 95 11/03/20 11:13 93 11/03/20 07:57 92 Diagnostic Findings Lumbar Spine X-Ray 11/03/20 07:00 FL lumbar spine 2-3V CLINICAL HISTORY: L4-L5 DECOMPRESSION AND FUSION COMPARISON STUDY: None FLUOROSCOPY TIME: 17 seconds. NUMBER OF FLUOROSCOPIC IMAGES: 2 FINDINGS: 2 intraoperative fluoroscopic spot images demonstrate postsurgical changes of an L4-5 discectomy and interbody fusion. Postlaminectomy changes are evident. There is posterior pedicle screw fixation. IMPRESSION: Postsurgical changes of an L4-5 spinal decompression, interbody fusion, and posterior pedicle screw fixation ACT 112: Negative or not required by law. Electronically signed by: Kang Raymond M.D. 11/03/2020 11:28 AM CXR: IMPRESSION: Subsegmental right middle lobe atelectatic change. Medications Administered Acetaminophen (Acetaminophen 500 Mg Tab) 1,000 mg PO PREOP RASHI Stop: 11/03/20 18:00 Last Admin: 11/03/20 08:26 Dose: 1,000 mg Documented by: [id number] Alprazolam (Alprazolam 0.5 Mg Tablet) 0.5 mg PO TID RASHI Stop: 12/03/20 13:59 Last Admin: 11/03/20 13:56 Dose: 0.5 mg Documented by: [id number] Artificial Tears (Artificial Tears) 1 drops OP TID RASHI Stop: 12/03/20 13:59 Last Admin: 11/03/20 14:00 Dose: 1 drops Documented by: [id number] Buspirone HCl (Buspirone 15 Mg Tab) 15 mg PO TID RASHI Stop: 12/03/20 13:59 Last Admin: 11/03/20 13:55 Dose: 15 mg Documented by: [id number] Celecoxib (Celebrex 200 Mg Cap) 200 mg PO PREOP RASHI Stop: 11/03/20 18:00 Last Admin: 11/03/20 08:27 Dose: Not Given Documented by: [id number] Gabapentin (Gabapentin 300 Mg Cap) 300 mg PO PREOP RASHI Stop: 11/03/20 18:00 Last Admin: 11/03/20 08:27 Dose: 300 mg Documented by: [id number] Lactated Ringer's (Lr) 1,000 mls @ 15 mls/hr IV .Q24H RASHI Stop: 11/04/20 05:59 Last Infusion: 11/03/20 09:32 Dose: 0 mls/hr Documented by: [id number] Admin: 11/03/20 08:25 Dose: 15 mls/hr Documented by: [id number] Clindamycin Phosphate (Cleocin) 600 mg in 54 mls @ 100 mls/hr IV PREOP RASHI Stop: 11/04/20 05:59 Last Admin: 11/03/20 09:32 Dose: 100 mls/hr Documented by: [id number] Sodium Chloride (Nss 1000ml) 1,000 mls @ 100 mls/hr IV .Q10H RASHI Stop: 12/03/20 12:21 Last Admin: 11/03/20 13:55 Dose: 100 mls/hr Documented by: [id number] Discontinued Medications Bacitracin (Bacitracin Inj 50,000 Unit Vial) Confirm Administered Dose 50,000 units .ROUTE .STK-MED ONE Stop: 11/03/20 09:16 Last Admin: 11/03/20 10:56 Dose: 50,000 units Documented by: [id number] Bupivacaine HCl/Epinephrine Bitart (Bupivacaine/Epinephrine 0.5% Mpf 1:200,000 30 Ml Vial) Confirm Administered Dose 30 ml .ROUTE .STK-MED ONE Stop: 11/03/20 09:16 Last Admin: 11/03/20 10:58 Dose: 20 ml Documented by: [id number] Miscellaneous ( Floseal Hemostatic Matrix 10ml) 10 ml TOP ONCE ONE Stop: 11/03/20 10:59 Last Admin: 11/03/20 11:00 Dose: 8 ml Documented by: [id number] ECG Rate (beats per minute): 76 Rhythm: normal sinus
[2020-11-03] MEDS: oxyCODONE HCL IR 5 MG TAB (IMMEDIATE RELEASE) PO PRN (16:29)
[2020-11-03] MEDS: CLINDAMYCIN 600 MG in DEXTROSE 5% 50 ML IV SCH (17:27)
[2020-11-03] MEDS: BUDESONIDE 0.25 MG/2 ML VIAL (PULMICORT) INH SCH (19:27)
[2020-11-03] MEDS: PANTOprazole 40 MG TAB PO SCH (20:26)
[2020-11-03] MEDS: FAMOTIDINE 20 MG TAB PO SCH (20:26)
[2020-11-03] MEDS: CALCIUM 600MG + VIT D 400 IU TAB PO SCH (20:26)
[2020-11-03] MEDS: DOCUSATE SODIUM/SENNA 50/8.6MG TAB PO SCH (20:26)
[2020-11-03] MEDS ORDERED: POLYETHYLENE (MIRALAX) 17 GM PACK PO SCH (21:00)
[2020-11-04] MEDS: CLINDAMYCIN 600 MG in DEXTROSE 5% 50 ML IV SCH (02:49)
[2020-11-04] MEDS: oxyCODONE HCL IR 5 MG TAB (IMMEDIATE RELEASE) PO PRN ×3 (03:59→14:45)
[2020-11-04] MEDS: POLYETHYLENE (MIRALAX) 17 GM PACK PO SCH ×3 (05:59→18:04)
[2020-11-04 06:01] LABS: Basophils # (auto) 0.01 K/uL (0-0.2); Basophils % (auto) 0.1 %; Eosinophils # (auto) 0.01 K/uL (0-0.5); Eosinophils % (auto) 0.1 %; Hematocrit (blood only) 32.3 % (37-47); Hemoglobin 10.7 g/dL (12.0-16.0); Immature Granulocytes # (auto) 0.02 K/uL (0.00-0.02); Immature Granulocytes % (auto) 0.2 %; Lymphocytes # (auto) 1.18 K/uL (1.2-3.4); Lymphocytes % (auto) 9.5 %; Mean Corpuscular Hemoglobin 30.7 pg (25-34); Mean Corpuscular Hgb Conc 33.1 g/dL (32-36); Mean Corpuscular Volume 92.6 fL (80-100); Mean Platelet Volume 10.1 fL (7.4-10.4); Monocytes # (auto) 1.05 K/uL (0.11-0.59); Monocytes % (auto) 8.5 %; Neutrophils # (auto) 10.09 K/uL (1.4-6.5); Neutrophils % (auto) 81.6 %; Platelet Count 221 K/uL (130-400); RDW Coefficient of Variation 14.2 % (11.5-14.5); RDW Standard Deviation 47.6 fL (36.4-46.3); Red Blood Count 3.49 M/uL (4.2-5.4); White Blood Count 12.36 K/uL (4.8-10.8)
[2020-11-04 06:35] LABS: BUN Creatinine Ratio 17.2 (10-20); Calcium 8.1 mg/dl (8.5-10.1); Creatinine Clr Calc Pharmacy 53.4 ml/min; Est GFR (African American) 68.3; Potassium 4.1 mmol/L (3.5-5.1)
[2020-11-04] MEDS: BUDESONIDE 0.25 MG/2 ML VIAL (PULMICORT) INH SCH ×2 (07:30→19:55)
[2020-11-04] MEDS: MULTIVITAMIN TAB PO SCH (08:36)
[2020-11-04] MEDS: ATENOLOL 25 MG TABLET PO SCH (08:36)
[2020-11-04] MEDS: ATORVASTATIN 20 MG TAB PO SCH (08:36)
[2020-11-04] MEDS: FLUTICASONE PROPIONATE NA SPR 16 GM BTL SCH (08:36)
[2020-11-04] MEDS: CETIRIZINE HCL 10 MG TABLET PO SCH (08:36)
[2020-11-04] MEDS: CYANOCOBALAMIN 500 MCG TABLET (VITAMIN B-12) PO SCH (08:36)
[2020-11-04] MEDS: ASCORBIC ACID 500 MG TAB PO SCH (08:36)
[2020-11-04] MEDS: ARTIFICIAL TEARS OP SCH ×3 (08:36→20:24)
[2020-11-04] MEDS: MONTELUKAST SODIUM 10 MG TABLET PO SCH (08:36)
[2020-11-04] MEDS: CALCIUM 600MG + VIT D 400 IU TAB PO SCH ×2 (08:36→20:25)
[2020-11-04] MEDS: FAMOTIDINE 20 MG TAB PO SCH ×2 (08:36→20:25)
[2020-11-04] MEDS: ALPRAZolam 0.5 MG TABLET PO SCH ×3 (08:37→20:24)
[2020-11-04] MEDS: PANTOprazole 40 MG TAB PO SCH ×2 (08:37→20:25)
[2020-11-04] MEDS: CITALOPRAM 40 MG TAB PO SCH (08:37)
[2020-11-04] MEDS: MIRABEGRON ER 25 MG TAB PO SCH (08:37)
[2020-11-04] MEDS: busPIRone 15 MG TAB PO SCH ×3 (08:37→20:25)
--- NOTE | 2020-11-04 08:53 | Hospitalist Progress Note ---
Date of Service November 04, 2020 Assessment & Plan (1) Neurogenic claudication due to lumbar spinal stenosis: S/P L4-L5 lumbar decompression fusion by Dr. Victor, POD #1 Tolerated procedure well EBL 100 mL; ERICH drain 145 mL Pain/wound management per orthopedic Activity, therapy and diet as directed by Ortho Encourage incentive spirometry, weaned off oxygen this a.m. Monitor hemoglobin, preop 12.0 Anemia post op hgb 10.7, pre op 12.0 likely dilutional at this point, minimal blood loss 100 EBL intra op and 145ml via ERICH drain monitor hgb Leukocytosis wbc 12.36k, likely reactive no s/sx of infection monitor (2) Asthma: No acute exacerbation, lungs clear Continue budesonide, as needed albuterol, Singulair and cetirizine Encourage incentive spirometry (3) Hypertension: Blood pressure stable Continue atenolol (4) Hyperlipidemia: Continue statin (5) Anxiety and depression: mood stable Continue BuSpar, citalopram, as needed alprazolam pt does have RUE tremor, she states this is chronic and feels likely 2/2 to her anti depression/anxiety meds Dispo: per primary FULL CODE PCP: Rere Pt was seen and examined in collaboration with Dr. Sweet, please see addendum Thank you for this consultation. We will follow the patient with you during their hospital stay. You can reach a member of the [facility] Hospitalist Team 21/02 via tiger text role. Admission and Anticipated Discharge Date Admission Date: November 03, 2020 Supervising Physician Co-Signing Physician Notes Physical Exam Gen-AAO x 3, NAD, Afebrile, Drain in Place Head-NCAT, EOMI, PERRLA, Anicteric Sclera, No Posterior Pharyngeal Erythema Neck-Supple, No JVD, No Thyromegaly, No Masses, No LAD, No Bruits Lungs-Clear to Auscultation Bilaterally, No Rales, No Rhonchi, No Wheezing, No Crepitus Chest-No S4, +S1, +S2, No S3, No Murmurs, No Rubs, No Gallops, No Ectopy Abdomen-Soft, Bowel Sounds Present, Non Tender, Non Distended, No Hepatomegaly, No Splenomegaly, No Palpable Masses, No Rebound, No Rigidity, No Guarding Musculoskeletal-Full Range of Motion Bilaterally, No CVAT, +Drain, Sore Extremities-No Cyanosis, No Clubbing, No Edema Nuero-Cranial Nerves II-XII grossly intact, Motor WNL, DTRs WNL, Strength WNL, Non Focal Psych-Normal Mood Subjective Patient was seen and examined in room 323. Follow-up lumbar surgery, asthma and hypertension. She is sitting up in bed eating breakfast. She does complain of increased incisional pain this morning and pain going down right leg. She denies any fever, chills, sweats, lightheadedness, dizziness, chest pain, shortness of breath, cough, wheeze, nausea, vomiting, abdominal pain. She was able to get up, ambulate and urinate without difficulty yesterday. She has been using incentive spirometry. She remains on oxygen. Nurse at bedside stated that respiratory therapy just evaluated patient and she was 96% on room air. Okay to come off oxygen. Review of Systems Review of Systems: All systems reviewed & are unremarkable except as noted in HPI & below Physical Exam Physical Exam: Gen: WD/WN, female, NAD, A&O x3 HEENT: Normocephalic, atraumatic, conjunctivae moist, sclerae anicteric, mucous membranes moist. Lung: Clear to Auscultation bilaterally, no wheezes/rales/rhonchi, Heart: Regular rate, regular rhythm, no murmurs, rubs, or gallops Abdomen: Soft, NT, ND +BS x 4 Extremities: No edema, lumbar dressing CDI, ERICH drain with serosanguineous drainage, RUE tremor with movement Skin: Warm, no rash, negative turgor. Results & Data Results & Data ([facility]) Vital Signs (Past 12 Hours) Vital Signs Temp Pulse Pulse Resp BP Pulse Ox 11/04/20 08:48 95 11/04/20 08:08 128/71 11/04/20 08:01 37 C 91 H 18 90 11/04/20 07:30 97 H 16 96 11/04/20 03:36 36.8 C 91 H 17 121/71 95 11/03/20 23:03 37.0 C 101 H 18 129/74 92 11/03/20 22:45 86 18 93 Laboratory Results Short CBC 11/04/20 Range/Units 05:46 WBC 12.36 H (4.8-10.8) K/uL Hgb 10.7 L (12.0-16.0) g/dL Hct 32.3 L (37-47) % Plt Count 221 (130-400) K/uL [facility] 11/04/20 05:46 Sodium 139 Potassium 4.1 Chloride 109 H Carbon Dioxide 22 BUN 17 Creatinine 0.99 Glucose 145 H Calcium 8.1 L Medications Administered Albuterol (Albuterol Hfa 8 Gm Inhaler) 1 puffs INH QID PRN PRN Reason: SHORT OF BREATH Stop: 12/03/20 13:07 Last Admin: 11/03/20 22:42 Dose: 1 puffs Documented by: [id number] Alprazolam (Alprazolam 0.5 Mg Tablet) 0.5 mg PO TID [facility] Stop: 12/03/20 13:59 Last Admin: 11/04/20 08:37 Dose: 0.5 mg Documented by: [id number] Admin: 11/03/20 20:26 Dose: 0.5 mg Documented by: [id number] Admin: 11/03/20 13:56 Dose: 0.5 mg Documented by: [id number] Artificial Tears (Artificial Tears) 1 drops OP TID [facility] Stop: 12/03/20 13:59 Last Admin: 11/04/20 08:36 Dose: 1 drops Documented by: [id number] Admin: 11/03/20 20:27 Dose: 1 drops Documented by: [id number] Admin: 11/03/20 14:00 Dose: 1 drops Documented by: [id number] Ascorbic Acid (Ascorbic Acid 500 Mg Tab) 500 mg PO QAM [facility] Stop: 12/04/20 08:59 Last Admin: 11/04/20 08:36 Dose: 500 mg Documented by: [id number] Atenolol (Atenolol 25 Mg Tablet) 25 mg PO QAM [facility] Stop: 12/04/20 08:59 Last Admin: 11/04/20 08:36 Dose: 25 mg Documented by: [id number] Atorvastatin Calcium (Atorvastatin 20 Mg Tab) 20 mg PO QAM [facility] Stop: 12/04/20 08:59 Last Admin: 11/04/20 08:36 Dose: 20 mg Documented by: [id number] Budesonide (Budesonide 0.25 Mg/2 Ml Vial (Pulmicort)) 0.25 mg INH BIDR [facility] Stop: 12/03/20 18:59 Last Admin: 11/04/20 07:30 Dose: 0.25 mg Documented by: [id number] Admin: 11/03/20 19:27 Dose: 0.25 mg Documented by: [id number] Buspirone HCl (Buspirone 15 Mg Tab) 15 mg PO TID [facility] Stop: 12/03/20 13:59 Last Admin: 11/04/20 08:37 Dose: 15 mg Documented by: [id number] Admin: 11/03/20 20:26 Dose: 15 mg Documented by: [id number] Admin: 11/03/20 13:55 Dose: 15 mg Documented by: [id number] Cetirizine HCl (Cetirizine Hcl 10 Mg Tablet) [facility] Stop: 12/04/20 08:59 Last Admin: 11/04/20 08:36 Dose: 10 mg Documented by: [id number] Citalopram Hydrobromide (Citalopram 40 Mg Tab) 40 mg PO [facility] Stop: 12/04/20 08:59 Last Admin: 11/04/20 08:37 Dose: 40 mg Documented by: [id number] Cyanocobalamin (Cyanocobalamin 500 Mcg Tablet (Vitamin B-12)) 1,000 mcg PO [facility] Stop: 12/04/20 08:59 Last Admin: 11/04/20 08:36 Dose: 1,000 mcg Documented by: [id number] Famotidine (Famotidine 20 Mg Tab) 20 mg PO BID [facility] Stop: 12/03/20 20:59 Last Admin: 11/04/20 08:36 Dose: 20 mg Documented by: [id number] Admin: 11/03/20 20:26 Dose: 20 mg Documented by: [id number] Fluticasone Propionate (Fluticasone Propionate Na Spr 16 Gm Btl) 1 sprays NA [facility] Stop: 12/04/20 08:59 Last Admin: 11/04/20 08:36 Dose: 1 sprays Documented by: [id number] Mirabegron (Mirabegron Er 25 Mg Tab) 25 mg PO QAM [facility] Stop: 12/04/20 08:59 Last Admin: 11/04/20 08:37 Dose: 25 mg Documented by: [id number] Miscellaneous (Fenofibrate Micronized 134 Mg - Order Awaiting Action) 1 ea N/A QS [facility] Stop: 12/03/20 15:59 Last Admin: 11/04/20 08:32 Dose: Not Given Documented by: [id number] Admin: 11/04/20 02:49 Dose: Not Given Documented by: [id number] Admin: 11/03/20 16:29 Dose: Not Given Documented by: [id number] Montelukast Sodium (Montelukast Sodium 10 Mg Tablet) 10 mg PO QAM [facility] Stop: 12/04/20 08:59 Last Admin: 11/04/20 08:36 Dose: 10 mg Documented by: [id number] Multivitamins (Multivitamin Tab) 1 tab PO QAM [facility] Stop: 12/04/20 08:59 Last Admin: 11/04/20 08:36 Dose: 1 tab Documented by: [id number] Multivitamins/Minerals (Calcium 600mg + Vit D 400 Iu Tab) 1 tab PO BID [facility] Stop: 12/03/20 20:59 Last Admin: 11/04/20 08:36 Dose: 1 tab Documented by: [id number] Admin: 11/03/20 20:26 Dose: 1 tab Documented by: [id number] Oxycodone HCl (Oxycodone Hcl Ir 5 Mg Tab (Immediate Release)) 5 - 10 mg PO Q4H PRN PRN Reason: Moderate-Severe Pain & Pre PT Stop: 11/17/20 12:21 Last Admin: 11/04/20 08:37 Dose: 10 mg Documented by: [id number] Admin: 11/04/20 03:59 Dose: 10 mg Documented by: [id number] Admin: 11/03/20 16:29 Dose: 10 mg Documented by: [id number] Pantoprazole Sodium (Pantoprazole 40 Mg Tab) 40 mg PO BID [facility] Stop: 12/03/20 20:59 Last Admin: 11/04/20 08:37 Dose: 40 mg Documented by: [id number] Admin: 11/03/20 20:26 Dose: 40 mg Documented by: [id number] Polyethylene Glycol (Polyethylene (Miralax) 17 Gm Pack) 17 gm PO Q6 RASHI Stop: 12/04/20 05:59 Last Admin: 11/04/20 05:59 Dose: 17 gm Documented by: [id number] Senna/Docusate Sodium (Docusate Sodium/Senna 50/8.6mg Tab) 2 tab PO HS [facility] Stop: 12/03/20 20:59 Last Admin: 11/03/20 20:26 Dose: 2 tab Documented by: [id number] Discontinued Medications Acetaminophen (Acetaminophen 500 Mg Tab) 1,000 mg PO PREOP RASHI Stop: 11/03/20 18:00 Last Admin: 11/03/20 08:26 Dose: 1,000 mg Documented by: [id number] Bacitracin (Bacitracin Inj 50,000 Unit Vial) Confirm Administered Dose 50,000 units .ROUTE .STK-MED ONE Stop: 11/03/20 09:16 Last Admin: 11/03/20 10:56 Dose: 50,000 units Documented by: [id number] Bupivacaine HCl/Epinephrine Bitart (Bupivacaine/Epinephrine 0.5% Mpf 1:200,000 30 Ml Vial) Confirm Administered Dose 30 ml .ROUTE .STK-MED ONE Stop: 11/03/20 09:16 Last Admin: 11/03/20 10:58 Dose: 20 ml Documented by: [id number] Celecoxib (Celebrex 200 Mg Cap) 200 mg PO PREOP RASHI Stop: 11/03/20 18:00 Last Admin: 11/03/20 08:27 Dose: Not Given Documented by: [id number] Gabapentin (Gabapentin 300 Mg Cap) 300 mg PO PREOP RASHI Stop: 11/03/20 18:00 Last Admin: 11/03/20 08:27 Dose: 300 mg Documented by: [id number] Lactated Ringer's (Lr) 1,000 mls @ 15 mls/hr IV .Q24H RASHI Stop: 11/04/20 05:59 Last Infusion: 11/03/20 09:32 Dose: 0 mls/hr Documented by: [id number] Admin: 11/03/20 08:25 Dose: 15 mls/hr Documented by: [id number] Clindamycin Phosphate (Cleocin) 600 mg in 54 mls @ 100 mls/hr IV PREOP RASHI Stop: 11/04/20 05:59 Last Infusion: 11/03/20 16:43 Dose: 100 mls/hr Documented by: [id number] Admin: 11/03/20 09:32 Dose: 100 mls/hr Documented by: [id number] Clindamycin Phosphate 600 mg/ (Dextrose) 54 mls @ 100 mls/hr IV Q8H RASHI Stop: 11/04/20 02:33 Last Infusion: 11/04/20 03:23 Dose: 0 mls/hr Documented by: [id number] Admin: 11/04/20 02:49 Dose: 100 mls/hr Documented by: [id number] Infusion: 11/03/20 18:15 Dose: 100 mls/hr Documented by: [id number] Admin: 11/03/20 17:27 Dose: 100 mls/hr Documented by: [id number] Sodium Chloride (Nss 1000ml) 1,000 mls @ 100 mls/hr IV .Q10H RASHI Stop: 12/03/20 12:21 Last Infusion: 11/04/20 05:59 Dose: 0 mls/hr Documented by: [id number] Infusion: 11/04/20 03:22 Dose: 100 mls/hr Documented by: [id number] Infusion: 11/04/20 02:49 Dose: 0 mls/hr Documented by: [id number] Admin: 11/03/20 23:02 Dose: 100 mls/hr Documented by: [id number] Infusion: 11/03/20 23:02 Dose: 100 mls/hr Documented by: [id number] Admin: 11/03/20 13:55 Dose: 100 mls/hr Documented by: [id number] Miscellaneous ( Floseal Hemostatic Matrix 10ml) 10 ml TOP ONCE ONE Stop: 11/03/20 10:59 Last Admin: 11/03/20 11:00 Dose: 8 ml Documented by: [id number]
--- NOTE | 2020-11-04 13:05 | Orthopedic Progress Note ---
Date of Service November 04, 2020 Assessment & Plan (1) Neurogenic claudication due to lumbar spinal stenosis: Admission and Anticipated Discharge Date Admission Date: November 03, 2020 This time continue physical therapy monitor her ERICH operatively discharge home in next few days. Subjective Patient's back pain is controlled leg symptoms improved. Physical Exam Physical Exam: Patient is in the chair at the bedside. Is good strength testing. Appears comfortable. Results & Data ([facility]) Vital Signs (Past 12 Hours) Vital Signs Temp Pulse Resp BP Pulse Ox 11/04/20 10:54 37.3 C 94 H 18 113/63 92 11/04/20 08:48 95 11/04/20 08:08 128/71 11/04/20 08:01 37 C 91 H 18 90 11/04/20 07:30 97 H 16 96 11/04/20 03:36 36.8 C 91 H 17 121/71 95
[2020-11-04] MEDS: DOCUSATE SODIUM/SENNA 50/8.6MG TAB PO SCH (20:25)
[2020-11-05] MEDS: oxyCODONE HCL IR 5 MG TAB (IMMEDIATE RELEASE) PO PRN (05:50)
[2020-11-05] MEDS: BUDESONIDE 0.25 MG/2 ML VIAL (PULMICORT) INH SCH ×2 (07:32→19:46)
[2020-11-05] MEDS: PANTOprazole 40 MG TAB PO SCH ×2 (07:52→20:48)
[2020-11-05] MEDS: FAMOTIDINE 20 MG TAB PO SCH ×2 (07:52→20:48)
[2020-11-05] MEDS: ALPRAZolam 0.5 MG TABLET PO SCH ×3 (07:52→20:47)
[2020-11-05] MEDS: CALCIUM 600MG + VIT D 400 IU TAB PO SCH ×2 (07:53→20:48)
[2020-11-05] MEDS: busPIRone 15 MG TAB PO SCH ×3 (07:53→20:48)
[2020-11-05] MEDS: MULTIVITAMIN TAB PO SCH (07:53)
[2020-11-05] MEDS: ATORVASTATIN 20 MG TAB PO SCH (07:53)
[2020-11-05] MEDS: ARTIFICIAL TEARS OP SCH ×3 (07:54→20:48)
[2020-11-05] MEDS: CITALOPRAM 40 MG TAB PO SCH (07:54)
[2020-11-05] MEDS: MIRABEGRON ER 25 MG TAB PO SCH (07:54)
[2020-11-05] MEDS: FLUTICASONE PROPIONATE NA SPR 16 GM BTL SCH (07:54)
[2020-11-05] MEDS: ASCORBIC ACID 500 MG TAB PO SCH (07:55)
[2020-11-05] MEDS: ATENOLOL 25 MG TABLET PO SCH (07:55)
[2020-11-05] MEDS: CETIRIZINE HCL 10 MG TABLET PO SCH (07:55)
[2020-11-05] MEDS: CYANOCOBALAMIN 500 MCG TABLET (VITAMIN B-12) PO SCH (07:55)
[2020-11-05] MEDS: MONTELUKAST SODIUM 10 MG TABLET PO SCH (07:55)
[2020-11-05] MEDS: dexAMETHasone 8 MG in SYRINGE 0 ML IV SCH (07:56)
--- NOTE | 2020-11-05 09:04 | Hospitalist Progress Note ---
Date of Service November 05, 2020 Assessment & Plan (1) Neurogenic claudication due to lumbar spinal stenosis: S/P L4-L5 lumbar decompression fusion by Dr. Victor, POD #1 Tolerated procedure well EBL 100 mL; ERICH drain 145 mL Pain/wound management per orthopedic Activity, therapy and diet as directed by Ortho Encourage incentive spirometry, weaned off oxygen this a.m. Monitor hemoglobin, preop 12.0 Post op Fever Lactic acidosis T max 38, pt feeling unwell with abd distension, pain and diarrhea Labs reviewed, lactic acid mildly elevated 2.3, procal 0.07, wbc wnl, temp 37.5 post APAP CXR/KUB reviewed, nonobstructive bowel gas pattern, minimal scarring vs atelectasis at lung bases Await UA C & S, stool culture, blood culture pending give 1L IVF bolus, repeat lactic acid vitals stable, does not meet SIRS criteria hold off on starting empiric antibiotics at this point Miralax D/c in setting of loose stool Anemia post op hgb 10.5 today, pre op 12.0 likely dilutional at this point, minimal blood loss 100 EBL intra op and 145ml via ERICH drain monitor hgb - repeat cbc Leukocytosis wbc 12.36k, likely reactive improved today at 7.83 pt is on IV decadron no s/sx of infection monitor- obtain cbc Hyperglycemia bsg 163, no hx of t2dm obtain a1c in a.m. Pt is on IV decadron likely causing hyperglycemia Hypokalemia give 20meq KCL x 1 now likely 2/2 to diarrhea (2) Asthma: No acute exacerbation, lungs clear Continue budesonide, as needed albuterol, Singulair and cetirizine Encourage incentive spirometry (3) Hypertension: Blood pressure stable Continue atenolol (4) Hyperlipidemia: Continue statin (5) Anxiety and depression: mood stable Continue BuSpar, citalopram, as needed alprazolam pt does have RUE tremor, she states this is chronic and feels likely 2/2 to her anti depression/anxiety meds Dispo: per primary FULL CODE PCP: Rere Pt was seen and examined in collaboration with Dr. Lomeli, please see addendum Thank you for this consultation. We will follow the patient with you during their hospital stay. You can reach a member of the [facility] Hospitalist Team 21/02 via tiger text role. Admission and Anticipated Discharge Date Admission Date: November 03, 2020 Supervising Physician Co-Signing Physician Notes Patient seen and examined his morning. WBC WNL. T. Max of 38. Lactic acodosis. Patient does endorse lower abdominal pain. Plan to obtain CT A/P. Trend LA. Started on IVF. I performed a history and physical examination of the patient on 11/05/20, including specifically H&P. I have discussed the patient's management with the advanced practitioner. Please refer to the Meri Chance note for the docum ented findings and plan of care. Subjective Patient was seen and examined in room 323 bed 1. Follow-up lumbar surgery and new onset fever. "I spiked a fever overnight." She complains of feeling sweaty and feverish and overall unwell. She denies any lightheadedness, dizziness, chest pain, shortness of breath, productive cough, nausea, vomiting, dysuria, increased urgency with urination, hematuria, melena or hematochezia. She states yesterday she had 6 bowel movements. She states she is on MiraLAX which she takes at home. This is not abnormal for her. She does complain of abdominal tenderness as well as distention. She feels more distended than yesterday. Pain is generalized but most epigastric and right upper quadrant. Described as dull, constant and worse with movement. Never experienced in the past. History of abdominal surgeries include appendectomy. She thinks she is passing flatus. She also complains of dry cough which is normal for her given her asthma. Lastly she complains of urinary urgency. Nurse confirms the loose stool with 6 bowel movements yesterday. She also states she had temp overnight which improved with Tylenol. Review of Systems Review of Systems: All systems reviewed & are unremarkable except as noted in HPI & below Physical Exam Physical Exam: Gen: WD/WN, patient appears unwell, NAD, A&O x3 HEENT: Normocephalic, atraumatic, conjunctivae moist, sclerae anicteric, mucous membranes moist. Lung: Clear to Auscultation bilaterally, no wheezes/rales/rhonchi Heart: Regular rate, regular rhythm, no murmurs, rubs, or gallops Abdomen: Firm, distended, tender to palpation in epigastrium and right upper quadrant but no rebound, guarding or rigidity, +BS x 4 Extremities: No edema, lumbar dressing CDI. Incision without erythema. ERICH drain with serosanguineous drainage. Skin: Warm, no rash, negative turgor. Results & Data Results & Data ([facility]) Vital Signs (Past 12 Hours) Vital Signs Temp Pulse Pulse Resp BP Pulse Ox 11/05/20 07:34 66 19 95 11/05/20 06:38 37.5 C 11/05/20 05:48 37.9 C H 11/05/20 05:30 38 C H 94 H 20 134/73 92 11/04/20 22:35 37.6 C H 89 18 110/68 90
[2020-11-05 09:08] LABS: Basophils # (auto) 0.01 K/uL (0-0.2); Basophils % (auto) 0.1 %; Eosinophils % (auto) 1.3 %; Hemoglobin 10.5 g/dL (12.0-16.0); Immature Granulocytes # (auto) 0.03 K/uL (0.00-0.02); Immature Granulocytes % (auto) 0.4 %; Lymphocytes # (auto) 1.55 K/uL (1.2-3.4); Lymphocytes % (auto) 19.8 %; Mean Corpuscular Hemoglobin 31.1 pg (25-34); Mean Corpuscular Volume 91.7 fL (80-100); Monocytes # (auto) 0.81 K/uL (0.11-0.59); Monocytes % (auto) 10.3 %; Neutrophils # (auto) 5.33 K/uL (1.4-6.5); Neutrophils % (auto) 68.1 %; Platelet Count 189 K/uL (130-400); RDW Coefficient of Variation 14.4 % (11.5-14.5); RDW Standard Deviation 48.8 fL (36.4-46.3); Red Blood Count 3.38 M/uL (4.2-5.4); White Blood Count 7.83 K/uL (4.8-10.8)
[2020-11-05 09:13] LABS: Mean Corpuscular Hgb Conc 33.9 g/dL (32-36)
--- NOTE | 2020-11-05 09:14 | XRay Report ---
KUB HISTORY: Acute generalized abdominal pain with distention distension COMPARISON: Chest radiograph of same day FINDINGS: Nonobstructive bowel gas pattern. Air-filled loops of large bowel. A catheter projects over the midabdomen. Discectomy with interbody lynda and screw fusion at L4-L5. No renal calculi. No urete ral calculi. No pneumoperitoneum or pneumatosis. No fracture. IMPRESSION: Nonobstructive bowel gas pattern. ACT 112: Negative or not required by law. The above report was generated using voice recognition software. It may contain grammatical, syntax o r spelling errors. Electronically signed by: Marvin Xiong M.D. 11/05/2020 9:12 AM
--- NOTE | 2020-11-05 09:15 | XRay Report ---
XR chest 1V portable HISTORY: 65 years-old Female fever acute fever COMPARISON: 10/21/2020 TECHNIQUE: Portable AP view of the chest FINDINGS: Cardiomediastinal and hilar silhouettes are within normal limits. Minimal linear subsegmental scarrin g/atelectasis of the lung bases. No pneumothorax, pleural effusion, lumbar airspace consolidation or overt pulmonary edema. Degenerative changes of the shoulders and spine. IMPRESSION: No acute process. ACT 112: Negative or not required by law. The above report was generated using voice recognition software. It may contain grammatical, syntax o r spelling errors. Electronically signed by: Marvin Xiong M.D. 11/05/2020 9:14 AM
[2020-11-05 09:38] LABS: Albumin Level 3.4 gm/dl (3.4-5.0); BUN Creatinine Ratio 15.4 (10-20); Creatinine Clr Calc Pharmacy 52.3 ml/min; Est GFR (African American) 66.7; Est GFR (Non-African American) 57.6; Potassium 3.4 mmol/L (3.5-5.1)
[2020-11-05 09:40] LABS: Albumin Globulin Ratio 0.9 (0.9-2); Bilirubin,Total 0.6 mg/dl (0.2-1); Globulin 3.7 gm/dl (2.5-4.0); Total Protein 7.1 gm/dl (6.4-8.2)
[2020-11-05] MEDS ORDERED: SODIUM CHLORIDE 0.9% 1,000 ML IV SCH (10:05)
[2020-11-05] MEDS ORDERED: POTASSIUM CHLORIDE CRTAB 20 MEQ TABCR PO STA (10:13)
[2020-11-05] MEDS ORDERED: SODIUM CHLORIDE 0.9% 1000ML 1,000 ML IV SCH (11:45)
[2020-11-05 12:12] LABS: Appearance Urine Clear (Clear); Bilirubin Urine Negative (Negative); Blood Urine Negative (Negative); Color Urine Yellow; Glucose Urine UA Negative (Negative); Ketones Urine Negative (Negative); Leukocyte Esterase Urine Negative (Negative); Nitrite Urine Negative (Negative); Protein Urine Negative (Negative); Specific Gravity Urine 1.008 (1.000-1.030); Urobilinogen Urine Negative (Negative)
--- NOTE | 2020-11-05 13:58 | Orthopedic Progress Note ---
Date of Service November 05, 2020 Assessment & Plan (1) Neurogenic claudication due to lumbar spinal stenosis: Admission and Anticipated Discharge Date Admission Date: November 03, 2020 This time continue physical therapy monitor ERICH output anticipate possible discharge home tomorrow. Subjective Back pain controlled leg pain improved Physical Exam Physical Exam: Patient is good strength testing appears comfortable. Results & Data ([facility]) Vital Signs (Past 12 Hours) Vital Signs Temp Pulse Pulse Resp BP Pulse Ox 11/05/20 07:34 66 19 95 11/05/20 06:38 37.5 C 11/05/20 05:48 37.9 C H 11/05/20 05:30 38 C H 94 H 20 134/73 92
[2020-11-05] MEDS ORDERED: OPTIRAY 320 100ml IV ONE (18:41)
--- NOTE | 2020-11-05 18:57 | CT Scan Report ---
CT SCAN OF THE ABDOMEN AND PELVIS WITH IV CONTRAST CLINICAL HISTORY: Generalized abdominal pain. Elevated lactic acid. COMPARISON STUDY: KUB dated 11/05/2020. TECHNIQUE: Following the IV administration of 92 cc of Optiray 320, CT scan of the abdomen and pelvi s is performed from the lung bases to the proximal femora. Images are reviewed in the axial, sagittal , and coronal planes. IV contrast was administered without complication. Oral contrast was utilized. A dose lowering technique was utilized adhering to the principles of ALARA. CT DOSE: 749.34 mGy.cm FINDINGS: Lung bases: The heart is normal in size and without pericardial effusion. The lung bases are clear no ting bibasilar atelectasis. A tiny fat-containing Bochdalek hernia is seen on the left. Liver: The contrast-enhanced liver is enlarged, measuring 22.9 cm in length. The liver demonstrates d iffusely diminished attenuation consistent with severe hepatic steatosis. Fatty sparing is noted tati cent to gallbladder fossa. There is no intrahepatic biliary ductal dilatation. The hepatic veins and portal veins are patent. Gallbladder: Unremarkable. Spleen: Normal in size and attenuation. Pancreas: Unremarkable. Adrenal glands: Unremarkable. Kidneys: The contrast enhanced kidneys are normal in size and without hydronephrosis. The kidneys enh ance symmetrically. Abdominal vasculature: The abdominal aorta is normal in course and caliber noting mild atheroscleroti c calcification. Bowel: There is no bowel obstruction. Enteric contrast reaches the mid to distal small bowel. The katherine endix is not identified and reported surgically absent. Peritoneum: There is no intraperitoneal free air or abdominal ascites. There is a small fat-containin g umbilical hernia. Lymphadenopathy: None. Pelvic viscera: The bladder is decompressed and grossly unremarkable. The uterus is surgically absent . No adnexal lesion is seen. Skeletal structures: The skeletal structures are osteopenic. No lytic or blastic lesions are seen. Th ere is postoperative change from laminectomy and posterior fusion at L4-L5. Interpedicular screws are in place and the orthopedic hardware appears intact. Postoperative change is seen within the posteri or soft tissues. A surgical drain is in place. IMPRESSION: 1. There are no acute infectious or inflammatory findings in the abdomen or pelvis. 2. Hepatomegaly and severe hepatic steatosis. 3. There is postoperative change from L4-L5 spinal fusion with a surgical drain in place. ACT 112: Negative or not required by law. Electronically signed by: Bernabe Beverly M.D. 11/05/2020 6:56 PM
[2020-11-05] MEDS ORDERED: LACTATED RINGER'S 1,000 ML IV ONE (19:34)
[2020-11-05 20:28] LABS: Appearance Urine Clear (Clear); Bilirubin Urine Negative (Negative); Blood Urine Negative (Negative); Color Urine Yellow; Glucose Urine UA Negative (Negative); Ketones Urine Negative (Negative); Leukocyte Esterase Urine Negative (Negative); Nitrite Urine Negative (Negative); Protein Urine Negative (Negative); Specific Gravity Urine > 1.045 (1.000-1.030); Urobilinogen Urine Negative (Negative)
[2020-11-05] MEDS: DOCUSATE SODIUM/SENNA 50/8.6MG TAB PO SCH (20:48)
[2020-11-05] MEDS: LACTATED RINGER'S 1,000 ML IV SCH (21:47)
[2020-11-05] MEDS ORDERED: MAGNESIUM SULFATE / D5W 1 GM/100 ML BAG IV ONE (22:30)
[2020-11-06] MEDS: LACTATED RINGER'S 1,000 ML IV SCH (02:45)
[2020-11-06 05:30] LABS: Basophils # (auto) 0.01 K/uL (0-0.2); Basophils % (auto) 0.1 %; Eosinophils # (auto) 0.01 K/uL (0-0.5); Eosinophils % (auto) 0.1 %; Hemoglobin 10.1 g/dL (12.0-16.0); Immature Granulocytes # (auto) 0.01 K/uL (0.00-0.02); Immature Granulocytes % (auto) 0.1 %; Lymphocytes % (auto) 17.5 %; Mean Corpuscular Hemoglobin 30.7 pg (25-34); Mean Corpuscular Hgb Conc 33.7 g/dL (32-36); Mean Corpuscular Volume 91.2 fL (80-100); Mean Platelet Volume 9.9 fL (7.4-10.4); Monocytes # (auto) 1.02 K/uL (0.11-0.59); Monocytes % (auto) 11.2 %; Neutrophils # (auto) 6.48 K/uL (1.4-6.5); Platelet Count 199 K/uL (130-400); RDW Coefficient of Variation 13.8 % (11.5-14.5); RDW Standard Deviation 46.6 fL (36.4-46.3); Red Blood Count 3.29 M/uL (4.2-5.4); White Blood Count 9.13 K/uL (4.8-10.8)
[2020-11-06 05:58] LABS: Albumin Globulin Ratio 0.8 (0.9-2); Albumin Level 3.1 gm/dl (3.4-5.0); BUN Creatinine Ratio 15.8 (10-20); Bilirubin,Total 0.4 mg/dl (0.2-1); Calcium 8.9 mg/dl (8.5-10.1); Creatinine Clr Calc Pharmacy 76.6 ml/min; Est GFR (African American) 104.4; Est GFR (Non-African American) 90.1; Globulin 3.8 gm/dl (2.5-4.0); Magnesium 1.9 mg/dl (1.8-2.4); Potassium 3.6 mmol/L (3.5-5.1); Total Protein 6.9 gm/dl (6.4-8.2)
[2020-11-06 06:23] LABS: Estimated Average Glucose 143 mg/dl; Hemoglobin A1C 6.6 % (4.5-5.6)
[2020-11-06] MEDS ORDERED: LACTATED RINGER'S 1,000 ML IV ONE (06:55)
[2020-11-06] MEDS: BUDESONIDE 0.25 MG/2 ML VIAL (PULMICORT) INH SCH (07:37)
[2020-11-06] MEDS: PANTOprazole 40 MG TAB PO SCH (09:00)
[2020-11-06] MEDS: ALPRAZolam 0.5 MG TABLET PO SCH (09:00)
[2020-11-06] MEDS: dexAMETHasone 8 MG in SYRINGE 0 ML IV SCH (09:00)
[2020-11-06] MEDS: FAMOTIDINE 20 MG TAB PO SCH (09:01)
[2020-11-06] MEDS: CETIRIZINE HCL 10 MG TABLET PO SCH (09:01)
[2020-11-06] MEDS: CITALOPRAM 40 MG TAB PO SCH (09:01)
[2020-11-06] MEDS: busPIRone 15 MG TAB PO SCH (09:01)
[2020-11-06] MEDS: MIRABEGRON ER 25 MG TAB PO SCH (09:02)
[2020-11-06] MEDS: ASCORBIC ACID 500 MG TAB PO SCH (09:02)
[2020-11-06] MEDS: ATORVASTATIN 20 MG TAB PO SCH (09:02)
[2020-11-06] MEDS: MONTELUKAST SODIUM 10 MG TABLET PO SCH (09:02)
[2020-11-06] MEDS: CALCIUM 600MG + VIT D 400 IU TAB PO SCH (09:02)
[2020-11-06] MEDS: CYANOCOBALAMIN 500 MCG TABLET (VITAMIN B-12) PO SCH (09:03)
[2020-11-06] MEDS: ATENOLOL 25 MG TABLET PO SCH (09:03)
[2020-11-06] MEDS: MULTIVITAMIN TAB PO SCH (09:03)
[2020-11-06] MEDS: ARTIFICIAL TEARS OP SCH (09:04)
[2020-11-06] MEDS: FLUTICASONE PROPIONATE NA SPR 16 GM BTL SCH (09:04)
--- NOTE | 2020-11-06 11:14 | Discharge Summary ---
Date of Service November 06, 2020 Admission HPI Per Admitting Provider This is a 65-year-old female presents with chronic persistent back and bilateral leg pain. After failing course of nonoperative care she is here for surgical invention. Principal Diagnosis Lumbar spine stenosis with neurogenic claudication Discharge Data Allergies Allergy/AdvReac Type Severity Reaction Status Date / Time topiramate Allergy Intermediate Tremors Verified 11/03/20 07:46 ampicillin Allergy Mild Hives Verified 11/03/20 07:46 Bactrim Allergy Mild RASH Verified 10/25/12 11:15 latex Allergy Mild Rash Verified 11/03/20 07:46 loratadine Allergy Mild Rash Verified 11/03/20 07:46 mirtazapine Allergy Mild Rash Verified 11/03/20 07:46 Sulfa (Sulfonamide Allergy Mild Rash Verified 11/03/20 07:46 Antibiotics) sulfamethoxazole [Bactrim] Allergy Mild Rash Verified 11/03/20 07:46 trimethoprim [Bactrim] Allergy Mild Rash Verified 11/03/20 07:46 meperidine AdvReac Intermediate Tremors Verified 11/03/20 07:46 prednisone AdvReac Intermediate Severe Verified 11/03/20 07:46 headaches fluticasone AdvReac Mild Nose bleeds Verified 11/03/20 07:46 Consultations 11/03/20 12:22 Consult Hospitalist Routine Procedures Performed Operation Date: 11/03/20 09:05 Actual Procedures p L4-L5 Decompression and Fusion, Spinal Cord Monitoring(Not Applicable) - Jose Alejandro Victor DO Ordered Studies 11/03/20 07:00 FL fluoroscopy <1hr Routine FL lumbar spine 2-3V Routine 11/05/20 16:03 CT abd pelvis oral and IV con Stat Diabetes Follow up Diabetes Follow-up Needed for Newly Diagnosed Diabetes Hospital Course (1) Neurogenic claudication due to lumbar spinal stenosis: Patient with lumbar decompression fusion tolerated well second orthopedic for postop labor postop day 1 she was ambulating progressive postop day #2 on postop day 3-day back pain was well controlled leg pain improved ERICH drain decr easing probably. Subsequently discharged home. Discharge orders instructions from the chart for further review. Total Time Total Time Spent Total Time Spent (In Minutes): 20 minutes Discharge Plan Discharge Items Patient Disposition: Home - Self-Care Reason For Visit: Biomechanical Lesions of Lumbar Region Discharge Diagnosis: Lumbar spinal stenosis with spondylolisthesis L4-L5 Activity: As commented below Non-emergency contact: Primary Care Provider Call non-emergency contact if: you have any medication questions Follow-up/Referrals: Roman Jernigan MD [Primary Care Provider] - Diet: Regular Addtl Attending Provider Instructions: ACTIVITY RECOMMENDATIONS: SELF CARE INSTRUCTIONS AFTER THORACIC/LUMBAR FUSIONS 1. You may walk to your tolerance. It is good exercise for your legs and back. Expect some back and intermittent leg aches and pains. 2. You may perform "counter-top" level activities (make a sandwich, ele with a project, etc.). 3. No bending or lifting of more than 10 pounds or back twisting of any nature (roll like a log when turning in bed). 4. You may ride in a car for 20-30 minutes at a time. No driving until after your first visit with your doctor. 5. Frequent changes of position and restricting sitting to 30 minutes at a time will help limit the amount of back spasms and stiffness you may experience. 6. You may discontinue the use of ambulatory aids (cane, crutches, etc.) once your strength and confidence allow. 7. You may card processing clerk the shower and let water strike your incision when you arrive home at least once daily. Do not take a tub bath, sit in a hot tub or go into a swimming pool until after your first recheck in the office. SPECIAL CARE INSTRUCTIONS: VERY IMPORTANT TO READ AND REVIEW A. Your surgical incision has been closed with a cosmetic suture under the skin that will dissolve in about 6 weeks. In 14 days, you can use a pair of clean scissors and cut the suture that is left outside of the skin at the ends of your incision. 1. The small skin tapes can be removed 7 days after surgery if they have not fallen off by that point. 2. You may keep the wound open to air as much as possible to promote healing after post-op day number 5 unless told otherwise by your doctor. 3. If you think the wound looks like it is becoming infected (redness or worsening drainage) and/or you are experiencing fever, chill or worsening back pain and muscle spasms, contact the office so that we may evaluate you as soon as possible. B. Complications are uncommon, but please contact us if you have any signs or symptoms of: 1. wound infection (fever higher than 102.5 degrees F, redness, separation of wound, drainage, or increasing pain from the incision) 2. blood clots in legs (pain, swelling, redness and warmth in legs) 3. urinary tract infection (fever higher than 102.5 degrees F, burning upon urination or increased frequency of urination) 4. nerve problems (inability to walk on your toes or heels, numbness, loss of bowel or bladder control) 5. any other symptoms that concern you C. Please call the office at if you have any concerns or questions about your operation or recovery. D. No smoking! Smoking drastically decreases the chance of a solid fusion. E. Do not take any anti-inflammatory medications (Indocin, Advil, Motrin, Aspirin, Naprosyn, etc.) as these may inhibit the chance of a solid fusion. Tylenol is okay to take for pain. MANAGING PAIN AFTER SPINAL SURGERY 1. Narcotic medication is intended for short-term use and will be provided for surgical pain. Surgical pain usually lasts for a period of 4-6 weeks. Narcotic medication includes Percocet, Vicodin, Darvocet, Tylenol #3 or Lortab. 2. Longer-term pain is more appropriately treated with non-narcotic medication such as Tylenol ES. 3. Muscle spasm is not appropriately treated with narcotics. Muscle relaxers such as Soma, Flexeril or Skelaxin can be used along with Tylenol ES. 4. Remember that we all live with some "aches and pains". This is not unusual or uncommon after an injury or as we get older. a. Back pain is expected and may include muscle spasms for 4 to 6 weeks after surgery. The pain should gradually improve. If the pain worsens for no apparent reason, please contact the office. b. Intermittent leg pain may also be experienced and should not be concerned about unless it worsens for no apparent reason. If so, please contact the office. 5. We will provide appropriate medication within the normal guidelines of their prescribed use. We will also be very cautious and aware of potential abuse and extended duration of patients' medication needs. a. Pain medications are for your comfort and to assist with sleep and rest so that the tissue can heal. They are not provided in order to return to normal activity and should not be used through the day. To do so or worsening pain at night can result from ongoing tissue damage and development of tolerance to the prescribed medicine. 6. Please allow 2-3 days to process refills. Prescriptions will not be mailed but must be picked up at the office. FOLLOW UP VISIT: Keep your scheduled follow-up appointment. Any questions, please call the office at . Pending Studies at Discharge: No Stand-Alone Forms: My [facility], Smoking Cessation Medications and DC Order Prescriptions: New oxycodone 5 mg tablet 5 mg PO Q6H PRN (Reason: pain, severe) Qty: 30 RF: 0 tramadol 50 mg tablet 50 mg PO Q6H PRN (Reason: pain, moderate) Qty: 30 RF: 0 Continued multivitamin Tablet 1 tab PO QAM RF: 0 atorvastatin 20 mg Tablet 20 mg PO QAM RF: 0 citalopram 40 mg Tablet 40 mg PO QAM RF: 0 cetirizine [Zyrtec] 10 mg Tablet 10 mg PO QAM RF: 0 atenolol 25 mg Tablet 25 mg PO QAM RF: 0 cyanocobalamin (vitamin B-12) 1,000 mcg Tablet 1,000 mcg PO QAM RF: 0 tetrahydrozoline 0.05 % Drops 1 drp OPB TID RF: 0 calcium carbonate-vitamin D3 600 mg(1,500mg) -200 unit Tablet 1 tab PO BID RF: 0 fenofibrate micronized 134 mg Capsule 134 mg PO QAM RF: 0 alprazolam [Xanax] 0.5 mg Tablet 0.5 mg PO TID RF: 0 famotidine [Pepcid] 20 mg Tablet 20 mg PO BID RF: 0 ascorbic acid (vitamin C) [Vitamin C] 500 mg Tablet 500 mg PO QAM RF: 0 pantoprazole 40 mg Tablet,Delayed Release (Dr/Ec) 40 mg PO BID RF: 0 budesonide 0.5 mg/2 mL Suspension For Nebulization 0.25 mg INHALATION BID RF: 0 montelukast [Singulair] 10 mg Tablet 10 mg PO QAM RF: 0 polyethylene glycol 3350 [Miralax] 17 gram/dose Powder 17 g PO BID RF: 0 fluticasone propionate 50 mcg/actuation Newborn,Suspension 1 spray INTRANASAL QAM RF: 0 buspirone 15 mg Tablet 15 mg PO TID RF: 0 ProAir RespiClick 90 mcg/actuation Aerosol Powdr Breath Activated 1 inh INHALATION QID PRN (Reason: SHORT OF BREATH) RF: 0 Myrbetriq 25 mg Tablet Extended Release 24 Hr 25 mg PO QAM RF: 0 Discharge Orders: Discharge Order (Routine); Ordered 11/06/20 Ordered By: Jose Alejandro Campbell/Other Patient Handouts: High Blood Sugar (Hyperglycemia), Hypoglycemia (Low Blood Sugar), Managing Type 2 Diabetes, Exercise to Manage Your Blood Sugar, 5 Steps for Eating Healthier, Understanding Type 2 Diabetes, A1C Admission Data Admit Date/Time: 11/03/20 11:27 Attending Provider: Jose Alejandro Victor Admit Provider: Jose Alejandro Victor Primary Care Provider: Roman Jernigan Other Providers: Lauren Lomeli
--- NOTE | 2020-11-06 12:29 | Hospitalist Progress Note ---
Date of Service November 06, 2020 Assessment & Plan (1) Neurogenic claudication due to lumbar spinal stenosis: S/P L4-L5 lumbar decompression fusion by Dr. Victor, POD #1 Tolerated procedure well EBL 100 mL; ERICH drain 145 mL Pain/wound management per orthopedic Activity, therapy and diet as directed by Ortho Encourage incentive spirometry, Hgb reamins stable. Post op Fever Lactic acidosis Remains afebrile, lactic acidosis is resolved. CT abdomen/pelvis without any concerning findings. Ultras are pending. Likely reactive findings. Will continue to monitor. Anemia - stable Leukocytosis- resolved Hyperglycemia bsg 136, no hx of t2dm obtain a1c in a.m. Pt is on IV decadron likely causing hyperglycemia Hypokalemia give 20meq KCL x 1 now likely 2/2 to diarrhea (2) Asthma: No acute exacerbation, lungs clear Continue budesonide, as needed albuterol, Singulair and cetirizine Encourage incentive spirometry (3) Hypertension: Blood pressure stable Continue atenolol (4) Hyperlipidemia: Continue statin (5) Anxiety and depression: mood stable Continue BuSpar, citalopram, as needed alprazolam pt does have RUE tremor, she states this is chronic and feels likely 2/2 to her anti depression/anxiety meds Dispo: per primary FULL CODE PCP: Rere Thank you for this consultation. We will follow the patient with you during their hospital stay. You can reach a member of the [facility] Hospitalist Team 21/02 via tiger text role. Admission and Anticipated Discharge Date Admission Date: November 03, 2020 Subjective Doing okay this morning. Reports she did not have a good night because she had a crying spell. No specific reason. This morning she reports her pain is well controlled. Denies any nausea or vomiting. Denies any chest pain or shortness of breath. Any abdominal pain, diarrhea or dysuria. Review of Systems Review of Systems: All systems reviewed & are unremarkable except as noted in HPI & below Physical Exam Physical Exam: General: A&Ox3 HENT: NCAT, MMM, EOMI Eyes: PERRLA Neck: Supple, normal range of motion CVS: normal rate and rhythm Resp: b/l good breath sounds Abdomen: Soft, ND/NT, +BS Extremities: No c/c/e Neuro: face symmetric, , no focal deficit Skin: warm and dry, no rashes/lesions/errythema MSK: back dressing is intact, drain in place Results & Data Results & Data ([facility]) Vital Signs (Past 12 Hours) Vital Signs Temp Pulse Resp BP Pulse Ox 11/06/20 07:57 36.7 C 70 18 137/74 95 11/06/20 07:38 78 19 94
== END 2020-11-06 13:11 | disposition home or self-care (01) ==
LOC: ASU 06:54 → INTOOBSV 11:27 → 3E 11:27